=== PATIENT | female | born 1975 | race Caucasian/White ===

== ENCOUNTER 2016-12-06 15:18 | Emergency (ER) | payer MEDICAID ==
[2016-12-06] MEDS ORDERED: LIDOCAINE-EPINEPH-TETRACAINE 3 ML SYRINGE TOP STA (17:44)
[2016-12-06] MEDS ORDERED: LIDOCAINE-EPINEPH-TETRACAINE 3 ML SYRINGE TOP ONE (17:46)
== END 2016-12-06 18:25 | disposition home or self-care (01) ==
DX: L02.416 Cutaneous abscess of left lower limb (principal); F17.200 Nicotine dependence, unspecified, uncomplicated

== ENCOUNTER 2017-11-22 15:27 | Outpatient (CLI) | payer MEDICAID ==
[2017-11-22 16:04] LABS: ALBUMIN/GLOBULIN RATIO 0.9 (1.0-2.2); ALKALINE PHOSPHATASE 64 IU/L (42-121); ALT ALANINE AMINOTRANSFERASE 12 IU/L (10-60); AST ASPARTATE AMINOTRANSFERASE 24 IU/L (10-42); BILIRUBIN,TOTAL 0.2 mg/dL (0.2-1.0); BUN - BLOOD UREA NITROGEN 15 mg/dL (6-20); CALCIUM 8.9 mg/dL (8.5-10.3); CARBON DIOXIDE - CO2 27 mmol/L (21-32); CHLORIDE 100 mmol/L (101-111); CREATININE 0.9 mg/dL (0.4-1.0); GFR - MDRD 68 (>89); GLUCOSE 92 mg/dL (70-100); SODIUM 134 mmol/L (135-145); TOTAL PROTEIN 8.7 g/dL (6.7-8.2)
[2017-11-22 17:50] LABS: THYROID STIMULATING HORMONE 48.31 uIU/mL (0.34-5.60)
[2017-11-22 18:31] LABS: FREE T4 (FREE THYROXINE) 0.51 ng/dL (0.58-1.64)
== END 2017-11-22 15:28 | disposition home or self-care (01) ==
LOC: LAB 15:27
PROVIDERS: ATTEND Family Medicine
DX: B35.1 Tinea unguium (principal); E03.9 Hypothyroidism, unspecified
CPT/HCPCS: 36415; 80053; 84439; 84443

== ENCOUNTER 2019-01-25 08:16 | Outpatient (CLI) | payer MEDICAID ==
[2019-01-25 13:00] LABS: BASOPHILS % (AUTO) 0.5 %; EOSINOPHILS # (AUTO) 0.1 10^3/uL (0.0-0.7); EOSINOPHILS % (AUTO) 4.2 %; HGB - HEMOGLOBIN 12.3 g/dL (12.0-16.0); LYMPHOCYTES # (AUTO) 1.2 10^3/uL (1.5-3.5); LYMPHOCYTES % (AUTO) 46.8 %; MEAN CORPUSCULAR VOLUME 81.7 fL (81.0-99.0); MEAN PLATELET VOLUME 8.8 fL (7.9-10.8); MONOCYTES # (AUTO) 0.2 10^3/uL (0.0-1.0); NEUTROPHILS % (AUTO) 39.5 %; PLT - PLATELET COUNT 220 10^3/uL (130-450); RED BLOOD COUNT 4.57 10^6/uL (4.20-5.40); RED CELL DISTRIBUTION WIDTH 13.6 % (12.0-15.0); WHITE BLOOD COUNT 2.5 x10^3/uL (4.8-10.8)
[2019-01-25 13:17] LABS: CHOL/HDL RATIO 4.5 (<4.4); CHOLESTEROL 168 mg/dL; HB2 TOTAL 13.4 g/dL; HDL CHOLESTEROL 37 mg/dL; HEMOGLOBIN A1C 0.53 g/dL; HEMOGLOBIN A1C % 5.8 % (4.6-6.2); LDL CHOLESTEROL,CALCULATED 100 mg/dL; LDL/HDL RATIO 2.7 (<4.4); VLDL CHOLESTEROL 31 mg/dL
[2019-01-25 13:25] LABS: RBC MORPHOLOGY (MULTIPLE) 1+ ANISOCYTOSIS (NORMAL)
[2019-01-25 13:45] LABS: THYROID STIMULATING HORMONE 0.17 uIU/mL (0.34-5.60)
[2019-01-25 13:48] LABS: FREE T4 (FREE THYROXINE) 1.26 ng/dL (0.58-1.64)
[2019-01-26 11:26] LABS: HEPATITIS B SURFACE ANTIGEN NON-REACTIVE (NON-REACTIVE); HEPATITIS C ANTIBODY NON-REACTIVE (NON-REACTIVE)
== END 2019-01-25 23:59 | disposition home or self-care (01) ==
LOC: LAB.N 08:16
PROVIDERS: ATTEND Physician Assistant Medical
DX: Z00.00 Encounter for general adult medical examination without abnormal findings (principal); F19.11 Other psychoactive substance abuse, in remission
CPT/HCPCS: 36415; 80061; 83036; 83721; 84439; 84443; 85025; 86317; 86704; 86803; 87340

== ENCOUNTER 2019-01-26 13:20 | Outpatient (CLI) | payer MEDICAID ==
--- NOTE | 2019-01-26 14:18 | Mammography Report ---
Reason: SCREENING MAMMOGRAM FOR BREAST CANCER Procedure Date: 01/26/2019 Accession Number: [id number] / [id number] Procedure: MGN - Screening Mammo Dig Bilat CPT Code: FULL RESULT: EXAM: Screening Mammo Dig Bilat DATE: 01/26/2019 1:41 PM CLINICAL HISTORY: Routine screening. No reported personal or family history of breast cancer. TECHNIQUE: (B) - Bilateral CC and MLO views were obtained. COMPARISON: None. Baseline exam. PARENCHYMAL PATTERN: (A) - The breasts demonstrate scattered fibroglandular densities bilaterally. FINDINGS: Bilateral breasts: There are no suspicious masses, calcifications, or areas of distortion. There is coarse calcification or radiodense material associated with 2 lymph nodes included in the right axilla; if patient has right-sided tattoos this could be a tattoo ink. Otherwise, finding could be indicative of a prior granulomatous infection. IMPRESSION: Benign findings. BI-RADS category 2 RECOMMENDATION: (ANNUAL) - Recommend routine annual screening mammography. BI-RADS CATEGORY: (2) - Benign Findings STANDARD QUALIFYING STATEMENTS: 1. This examination was reviewed with the aid of Computer-Aided Detection (CAD). 2. A negative or benign imaging report should not preclude biopsy if clinically suspicious findings are present. 3. Dense breasts may obscure an underlying neoplasm. 4. This examination was reviewed without the aid of 3D breast imaging (tomosynthesis).
== END 2019-01-26 13:21 | disposition home or self-care (01) ==
LOC: DI.N 13:20
PROVIDERS: ATTEND Physician Assistant Medical
DX: Z12.31 Encounter for screening mammogram for malignant neoplasm of breast (principal)
CPT/HCPCS: 77067

== ENCOUNTER 2019-02-02 10:43 | Outpatient (CLI) | payer MEDICAID ==
--- NOTE | 2019-02-02 12:29 | XRAY Report ---
Reason: HIP PAIN Procedure Date: 02/02/2019 Accession Number: [id number] / [id number] Procedure: XR - Hips 2V BILAT CPT Code: FULL RESULT: EXAM: BILATERAL HIP RADIOGRAPHY EXAM DATE: 02/02/2019 11:33 AM. CLINICAL HISTORY: Hip pain. COMPARISON: None. TECHNIQUE: 2 views each. FINDINGS: Bones: Normal. No fractures or bone lesion. Right Hip: Normal. No dislocation. The hip joint space is preserved. Left Hip: Normal. No dislocation. The hip joint space is preserved. Soft Tissues: Normal. No soft tissue swelling. IMPRESSION: No fracture or dislocation. RADIA
--- NOTE | 2019-02-02 12:32 | XRAY Report ---
Reason: LOW BACK PAIN Procedure Date: 02/02/2019 Accession Number: [id number] / [id number] Procedure: XR - Lumbar Spine 2 View CPT Code: FULL RESULT: EXAM: LUMBOSACRAL SPINE RADIOGRAPHY EXAM DATE: 02/02/2019 11:33 AM. CLINICAL HISTORY: Low back pain. COMPARISONS: XR LUMBAR SPINE 2 OR 3 VIEWS 10/21/2008 4:23 PM. TECHNIQUE: 3 views. FINDINGS: Alignment: Interval development of mild levoconvex lumbar scoliosis centered about L3 as well as mild approximately 5 mm retrolisthesis of L2 on L3. Similarly, there is minimal, 3 mm retrolisthesis of L3 on L4 and L1 on L2. Bones: Five kvr-hwc-hixbmkm lumbar vertebral bodies are present. No fractures or bone lesions. Disks: Normal. Disk heights are maintained. Facets: Progression of facet arthropathy, now moderate at L5 and mild at L4. Sacroiliac Joints: Unremarkable. Soft Tissues: Normal. The visualized bowel gas pattern is normal. IMPRESSION: Interval development of retrolisthesis, scoliosis and mild progression of degenerative changes. RADIA
== END 2019-02-02 10:44 | disposition home or self-care (01) ==
LOC: DI 10:43
PROVIDERS: ATTEND Physician Assistant Medical
DX: M47.9 Spondylosis, unspecified (principal); M43.16 Spondylolisthesis, lumbar region; M41.9 Scoliosis, unspecified; M25.559 Pain in unspecified hip
CPT/HCPCS: 72100; 73521

== ENCOUNTER 2019-03-28 09:16 | Outpatient (CLI) | payer MEDICAID ==
[2019-03-28 13:08] LABS: RHEUMATOID FACTOR NEGATIVE (Negative)
[2019-04-02 14:16] LABS: ANA SCREEN POSITIVE (NEGATIVE)
== END 2019-03-28 23:59 | disposition home or self-care (01) ==
LOC: LAB.N 09:16
PROVIDERS: ATTEND Physician Assistant Medical
DX: M35.01 Sjogren syndrome with keratoconjunctivitis (principal)
CPT/HCPCS: 36415; 81599; 86038; 86235; 86430

== ENCOUNTER 2019-05-07 14:33 | Outpatient (CLI) | payer MEDICAID ==
[2019-05-07 16:27] LABS: FOLLICLE STIMULATING HORMONE 60.87 mIU/mL
[2019-05-07 16:28] LABS: LUTEINIZING HORMONE 43.89 mIU/mL
== END 2019-05-07 14:34 | disposition home or self-care (01) ==
LOC: LAB 14:33
PROVIDERS: ATTEND Obstetrics & Gynecology
DX: N95.1 Menopausal and female climacteric states (principal)
CPT/HCPCS: 36415; 82670; 83001; 83002

== ENCOUNTER 2019-08-18 14:38 | Emergency (ER) | payer MEDICAID ==
[2019-08-18 14:50] VITALS: BP 115/76
--- NOTE | 2019-08-18 15:03 | ED Physician Documentation ---
History of Present Illness - Stated complaint Stated Complaint: SORE THROAT - Chief complaint Chief Complaint: Heent - Additonal information Additional information: This is a 44-year-old female who has a history of past strep infections who presents with sore throat, fever, and lymph node swelling in her neck. Symptoms have been ongoing for 3 to 4 days, she states that she has had some increasing pain with swallowing, and she has had a fever at home for several days. No cough. She has some mild nasal congestion. No vomiting or abdominal pain. No shortness of breath. Review of Systems Throat: reports: Sore throat Cardiac: denies: Chest pain / pressure Respiratory: denies: Dyspnea PD PAST MEDICAL HISTORY - Past Medical History Respiratory: Pneumonia Endocrine/Autoimmune: HyPERthyroidism - Past Surgical History Past Surgical History: Yes General: Cholecystectomy - Present Medications Home Medications: Ambulatory Orders Medication Instructions Recorded Confirmed Oxycodone HCl/Acetaminophen 1 each PO Q6HR PRN #10 tablet 08/09/14 [Percocet 5-325 mg Tablet] Penicillin Vk 500 mg PO Q6H 10 Days tablet 08/09/14 - Allergies Allergies/Adverse Reactions: Allergies Allergy/AdvReac Type Severity Reaction Status Date / Time oxymetazoline HCl * Allergy Unknown Verified 08/18/19 14:50 [From Herbert-Synephrine (phenylephrine)] phenylephrine HCl * Allergy Unknown Verified 08/18/19 14:50 [From Herbert-Synephrine (phenylephrine)] sumatriptan [From Imitrex] Allergy Unknown Verified 08/18/19 14:50 sumatriptan succinate * Allergy Unknown Verified 08/18/19 14:50 [From Imitrex] xylometazoline HCl * Allergy Unknown Verified 08/18/19 14:50 [From Herbert-Synephrine (phenylephrine)] - Social History Does the pt smoke?: Yes Smoking Status: Current every day smoker Does the pt drink ETOH?: No Does the pt have substance abuse?: Yes - POLST Patient has POLST: No PD ED PE NORMAL - Vitals Vital signs reviewed: Yes - General General: Alert and oriented X 3, No acute distress - HEENT HEENT: Other (Pharynx is erythematous, tonsils are edematous, there is aAnterior lymphadenopathy. exudate on them bilaterally. There is cervical uvula is midli ne.) - Neck Neck: Supple, no meningeal sign - Cardiac Cardiac: RRR - Respiratory Respiratory: No respiratory distress - Derm Derm: Warm and dry - Extremities Extremities: No deformity - Neuro Neuro: Alert and oriented X 3 - Psych Psych: Normal mood, Normal affect Results - Vitals Vitals: Oxygen O2 Source Room air - Labs Labs: Microbiology 08/18/19 12:25 Group A Strep Throat Culture - Final Throat Beta Hemolytic Strep Group C Laboratory Tests 08/18/19 12:25 Group A Strep Rapid Negative PD MEDICAL DECISION MAKING - ED course Complexity details: considered differential (Strep throat, viral pharyngitis) ED course: Patient presents with sore throat, she has exudate, lymphadenopathy, and has not had significant cough or rhinorrhea, clinically she is high likelihood for strep throat. Rapid strep is negative but I think she warrants treatment. I discussed options with her and she elected for an IM shot of penicillin, which was given. 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 Return precautions discussed and patient was discharged home. Departure - Departure Disposition: 01 Home, Self Care Clinical Impression: Strep pharyngitis Condition: Good Instructions: ED Strep Pharyngitis Poss Follow-Up: Vitaly Morel PA-C [Primary Care Provider] - As Needed Comments: You were seen today for sore throat and fever. Rapid strep test was negative, but given your constellation of symptoms and your high risk for strep throat and we have treated with an injection of penicillin. Please return to the emergency department if you are having worsening symptoms. Continue to hydrate well, you may take Tylenol and ibuprofen for pain and fever. Forms: Activity restrictions Discharge Date/Time: 08/18/19 15:48
[2019-08-18] MEDS ORDERED: PENICILLIN G BENZATHINE 600,000 UNIT/ML SYRINGE IM STA (15:19)
== END 2019-08-18 15:48 | disposition home or self-care (01) ==
LOC: ED 14:38
DX: J02.0 Streptococcal pharyngitis (principal); F17.200 Nicotine dependence, unspecified, uncomplicated
CPT/HCPCS: 87070; 87430; 96372; 99283; 99284

== ENCOUNTER 2019-09-04 14:33 | Outpatient (CLI) | payer MEDICAID ==
--- NOTE | 2019-09-04 16:00 | MRI Report ---
Reason: RETROLISTHESIS OF VERTEBRA, HIP AND LOW BACK PAIN Procedure Date: 09/04/2019 Accession Number: [id number] / [id number] Procedure: MRI - Lumbar Spine W/O CPT Code: Final Report FULL RESULT: MRI LUMBAR SPINE WITHOUT CONTRAST INDICATION: 44-year-old female. Lower back pain and bilateral hip pain. Concern for lumbar radiculopathy. TECHNIQUE: 1. Sagittal STIR, T1 and T2. 2. Axial T1 and T2. COMPARISON: None. FINDINGS: Radiographs (02/02/2019) have been reviewed, confirming the presence of 5 xrg-yia-paxapmq, lumbar type vertebrae. The coronal localizer demonstrates a mild, levoconvex lumbar curvature with apex at about L3. In the sagittal plane there is mild, stepwise retrolisthesis of L1 on L2, L2 on L3 and L3 on L4 measuring roughly 3-4 mm in all 3 levels. The alignment is otherwise unremarkable. There is minimal anterior wedging of the T11 and T12 vertebral bodies with mild anterior wedging of L1. The vertebral body heights are otherwise preserved. No evidence of recent compression fracture. There is absence of normal T2 signal from the disks at T11-T12 and from L1-L2 to L5-S1, confirming disk degeneration. There is at least moderate disk space narrowing at T11-T12. Mild disk space narrowing is seen at L1-L2, L2-L3 and L3-L4. There is at least moderate disk space narrowing at L5-S1. The T12-L1 and L4-L5 disk space heights are relatively preserved. Type I reactive marrow changes are identified in the vertebral endplates at L5-S1 on the left. There is minor, type I reactive marrow change at L1-L2 anteriorly. A few small intraosseous hemangiomata are demonstrated. There is STIR hyperintense marrow signal in the left and right pedicles of L4 and L5, probably reactive and secondary to bilateral L4-L5 degenerative facet arthrosis. The possibility of stress reaction or other pathology is considered less likely. These changes are superimposed on a background of diffusely low T1 marrow signal, likely representing normal hematopoietic marrow in a patient this age. The conus terminates in an appropriate fashion above the L1-L2 disk level. Axial images: T12-L1: No disk herniation or spinal stenosis. The neural foramina are widely patent. L1-L2: Retrolisthesis. Shallow posterior protrusion. Mild mass effect on the ventral aspect of the thecal sac without spinal stenosis. Small right intraforaminal/extraforaminal protrusion. Mild foraminal narrowing. L2-L3: Retrolisthesis. Small intraforaminal/extraforaminal extrusions bilaterally. No significant spinal stenosis. Mild foraminal stenoses. L3-L4: Retrolisthesis. Broad-based intraforaminal/extraforaminal extrusions bilaterally, slightly larger on the right than the left. Mild degenerative facet arthrosis. No bony hypertrophy. Mild redundancy of the ligamenta flava. No central zone spinal stenosis or significant appearing subarticular zone narrowing. Mild left and mild to moderate right foraminal stenoses. L4-L5: Circumferential disk bulge. Small left intraforaminal/extraforaminal extrusion. Degenerative facet arthrosis with mild bony hypertrophy. Mild redundancy of the ligamenta flava. Circumferential mass effect on the thecal sac with mild generalized (central and subarticular zone) spinal stenosis. Mild bilateral foraminal stenoses. L5-S1: Small, broad-based, posterior extrusion largest paracentrally to the left where it projects into the spinal canal for up to about 5 mm. Degenerative facet arthrosis with mild bony hypertrophy. Small intraforaminal/extraforaminal extrusions bilaterally. No spinal stenosis. Mild foraminal narrowing. IMPRESSION: 1. Degenerative disk and facet changes are seen at multiple levels in the lumbar spine as documented in detail above. 2. No significant appearing spinal canal or foraminal stenosis is demonstrated. There is no evidence of neural impingement.
== END 2019-09-04 14:34 | disposition home or self-care (01) ==
LOC: DI 14:33
PROVIDERS: ATTEND Physician Assistant Medical
DX: M47.816 Spondylosis without myelopathy or radiculopathy, lumbar region (principal); M51.36 Other intervertebral disc degeneration, lumbar region; M51.34 Other intervertebral disc degeneration, thoracic region; M43.16 Spondylolisthesis, lumbar region
CPT/HCPCS: 72148

== ENCOUNTER 2020-03-04 12:33 | Outpatient (CLI) | payer MEDICAID ==
[2020-03-04 17:40] LABS: BASOPHILS % (AUTO) 0.6 %; EOSINOPHILS # (AUTO) 0.1 10^3/uL (0.0-0.7); EOSINOPHILS % (AUTO) 2.2 %; HGB - HEMOGLOBIN 12.9 g/dL (12.0-16.0); LYMPHOCYTES # (AUTO) 1.7 10^3/uL (1.5-3.5); LYMPHOCYTES % (AUTO) 51.7 %; MEAN CORPUSCULAR HEMOGLOBIN 25.7 pg (27.0-31.0); MEAN CORPUSCULAR HGB CONC 30.9 g/dL (32.0-36.0); MEAN CORPUSCULAR VOLUME 83.2 fL (81.0-99.0); MEAN PLATELET VOLUME 10.6 fL (7.9-10.8); MONOCYTES # (AUTO) 0.2 10^3/uL (0.0-1.0); MONOCYTES % (AUTO) 6.9 %; NEUTROPHILS # (AUTO) 1.2 10^3/uL (1.5-6.6); NEUTROPHILS % (AUTO) 38.3 %; PLT - PLATELET COUNT 211 10^3/uL (130-450); RED BLOOD COUNT 5.01 10^6/uL (4.20-5.40); RED CELL DISTRIBUTION WIDTH 12.5 % (12.0-15.0); WHITE BLOOD COUNT 3.2 x10^3/uL (4.8-10.8)
[2020-03-04 17:53] LABS: CALCIUM 8.9 mg/dL (8.5-10.3); CREATININE 0.8 mg/dL (0.4-1.0)
[2020-03-04 18:11] LABS: THYROID STIMULATING HORMONE < 0.08 uIU/mL (0.34-5.60)
== END 2020-03-04 23:59 | disposition home or self-care (01) ==
LOC: LAB.WCP 12:33
PROVIDERS: ATTEND Physician Assistant Medical
DX: E06.3 Autoimmune thyroiditis (principal)
CPT/HCPCS: 36415; 80048; 84439; 84443; 85025

== ENCOUNTER 2020-04-07 08:00 | Outpatient (CLI) | payer MEDICAID ==
[2020-04-07 13:19] LABS: THYROID STIMULATING HORMONE < 0.08 uIU/mL (0.34-5.60)
[2020-04-07 13:20] LABS: FREE T3 3.34 pg/mL (2.5-3.9)
[2020-04-07 13:21] LABS: FREE T4 (FREE THYROXINE) 1.54 ng/dL (0.58-1.64)
== END 2020-04-07 23:59 | disposition home or self-care (01) ==
LOC: LAB.WCP 08:00
PROVIDERS: ATTEND Nurse Practitioner Family
DX: E06.3 Autoimmune thyroiditis (principal)
CPT/HCPCS: 36415; 84439; 84443; 84481

== ENCOUNTER 2020-07-08 12:30 | Outpatient (CLI) | payer MEDICAID ==
--- NOTE | 2020-07-09 10:20 | Mammography Report ---
BILATERAL DIGITAL SCREENING MAMMOGRAM 3D/2D: 07/08/2020 CLINICAL: Routine screening. Comparison is made to exam dated: 01/26/2019 mammogram - [facility]. The tissue of both breasts is heterogeneously dense. This may lower the sensitivity of mammography. There is a lymph node in the right axilla with calcification which is unchanged. No significant masses, calcifications, or other findings are seen in either breast. There has been no significant interval change. IMPRESSION: BENIGN There is no mammographic evidence of malignancy. A 1 year screening mammogram is recommended. This exam was interpreted at Station ID: [id number]. NOTE: For mammograms, a report in lay terms will be sent to the patient. Approximately 15% of breast malignancies will not be visualized mammographically. In the management of a palpable breast mass, a negative mammogram must not discourage biopsy of a clinically suspicious lesion. Electronically Signed By: Norm Apple M.D. slc/:07/08/2020 18:08:32 ACR BI-RADS Category 2: Benign Finding(s) 3342F PARENCHYMAL PATTERN: (D) - The breast(s) demonstrate(s) heterogeneously dense fibroglandular shaq wheatley. BI-RADS CATEGORY: (2) - 2 RECOMMENDATION: (ANNUAL) - Recommend routine annual screening mammography. [id number] 1 year screening LATERALITY: (B)
== END 2020-07-08 12:31 | disposition home or self-care (01) ==
LOC: DI.N 12:30
DX: Z12.31 Encounter for screening mammogram for malignant neoplasm of breast (principal)
CPT/HCPCS: 77063; 77067

== ENCOUNTER 2021-04-10 08:00 | Outpatient (CLI) | payer MEDICAID ==
[2021-04-10 11:34] LABS: BASOPHILS % (AUTO) 0.4 %; EOSINOPHILS # (AUTO) 0.1 10^3/uL (0.0-0.7); EOSINOPHILS % (AUTO) 2.5 %; HGB - HEMOGLOBIN 12.3 g/dL (12.0-16.0); LYMPHOCYTES # (AUTO) 1.2 10^3/uL (1.5-3.5); LYMPHOCYTES % (AUTO) 51.7 %; MEAN CORPUSCULAR HGB CONC 31.5 g/dL (32.0-36.0); MEAN CORPUSCULAR VOLUME 85.5 fL (81.0-99.0); MEAN PLATELET VOLUME 10.7 fL (7.9-10.8); MONOCYTES # (AUTO) 0.3 10^3/uL (0.0-1.0); MONOCYTES % (AUTO) 10.5 %; NEUTROPHILS # (AUTO) 0.8 10^3/uL (1.5-6.6); NEUTROPHILS % (AUTO) 34.9 %; PLT - PLATELET COUNT 173 10^3/uL (130-450); RED BLOOD COUNT 4.56 10^6/uL (4.20-5.40); RED CELL DISTRIBUTION WIDTH 12.8 % (12.0-15.0); WHITE BLOOD COUNT 2.4 x10^3/uL (4.8-10.8)
[2021-04-10 11:43] LABS: SLIDE REVIEW? Indicated
[2021-04-10 12:24] LABS: PLATELET ESTIMATE, MANUAL NORMAL (130-450,000) (NORMAL); PLATELET MORPHOLOGY NORMAL APPEARANCE (NORMAL); RBC MORPHOLOGY (MULTIPLE) 1+ OVALOCYTES (NORMAL)
[2021-04-10 12:32] LABS: ALBUMIN 4.2 g/dL (3.2-5.5); ALKALINE PHOSPHATASE 56 IU/L (42-121); ALT ALANINE AMINOTRANSFERASE 20 IU/L (10-60); AST ASPARTATE AMINOTRANSFERASE 21 IU/L (10-42); BILIRUBIN,TOTAL 0.5 mg/dL (0.2-1.0); BUN - BLOOD UREA NITROGEN 18 mg/dL (6-20); CALCIUM 9.3 mg/dL (8.5-10.3); CARBON DIOXIDE - CO2 26 mmol/L (21-32); CHLORIDE 105 mmol/L (101-111); CHOL/HDL RATIO 3.5 (<4.4); CHOLESTEROL 180 mg/dL; CREATININE 0.8 mg/dL (0.4-1.0); GFR - MDRD 77 (>89); GLUCOSE 105 mg/dL (70-100); HDL CHOLESTEROL 51 mg/dL; LDL CHOLESTEROL,CALCULATED 113 mg/dL; LDL/HDL RATIO 2.2 (<4.4); POTASSIUM 4.2 mmol/L (3.5-5.0); SODIUM 138 mmol/L (135-145); TOTAL PROTEIN 8.5 g/dL (6.7-8.2); TRIGLYCERIDES 78 mg/dL; VLDL CHOLESTEROL 16 mg/dL
[2021-04-10 13:08] LABS: THYROID STIMULATING HORMONE 0.01 uIU/mL (0.34-5.60)
[2021-04-10 13:53] LABS: FREE T4 (FREE THYROXINE) 1.52 ng/dL (0.58-1.64)
== END 2021-04-10 23:59 | disposition home or self-care (01) ==
LOC: LAB.WCP 08:00
PROVIDERS: ATTEND Nurse Practitioner Family
DX: Z00.00 Encounter for general adult medical examination without abnormal findings (principal); E06.3 Autoimmune thyroiditis
CPT/HCPCS: 36415; 80053; 80061; 83721; 84439; 84443; 85025

== ENCOUNTER 2021-05-09 08:00 | Outpatient (CLI) | payer MEDICAID | END 2021-05-09 23:59 | disposition home or self-care (01) | LOC: LAB.N 08:00 | PROVIDERS: ATTEND Family Medicine | DX: R07.0 Pain in throat (principal); Z20.822 Contact with and (suspected) exposure to COVID-19 | CPT/HCPCS: 87070 ==

== ENCOUNTER 2021-07-07 16:03 | Outpatient (CLI) | payer MEDICAID ==
--- NOTE | 2021-07-07 19:02 | XRAY Report ---
PROCEDURE: Cervical Spine w/Flex/Ext INDICATIONS: CHRONIC NECK PAIN TECHNIQUE: 7 views of the cervical spine were acquired. COMPARISON: None. FINDINGS: Bones: No fractures or dislocations to the C7 level. There is moderate degenerative change in the ce rvical spine most pronounced at C5-C6 and C6-C7 where there is prominent osteophytes, intervertebral disc space height loss, and endplate sclerosis. There is uncovertebral joint hypertrophy. There is a mild left neural foraminal narrowing at C5-C6 and C6-C7. No suspicious bony lesions. There is preser gomez normal bony alignment with flexion and extension. There is less than expected range of motion. Soft tissues: Prevertebral soft tissues are normal in thickness. IMPRESSION: Moderate early onset degenerative change in the cervical spine. This is most pronounced at C5-C6 and C6-C7. Decreased range of motion with flexion and extension. Reviewed by: Norm Apple MD on 07/07/2021 6:01 PM [facility] Approved by: Norm Apple MD on 07/07/2021 6:01 PM [facility] Station ID: [id number]
== END 2021-07-07 16:04 | disposition home or self-care (01) ==
LOC: DI.N 16:03
PROVIDERS: ATTEND Family Medicine
DX: M47.812 Spondylosis without myelopathy or radiculopathy, cervical region (principal)

== ENCOUNTER 2021-08-14 08:00 | Outpatient (CLI) | payer MEDICAID | END 2021-08-14 08:01 | disposition home or self-care (01) | LOC: LAB 08:00 | PROVIDERS: ATTEND Family Medicine | DX: R07.0 Pain in throat (principal) | CPT/HCPCS: 87070 ==

== ENCOUNTER 2021-08-14 08:00 | Outpatient (CLI) | payer MEDICAID | END 2021-08-14 08:01 | disposition home or self-care (01) | LOC: LAB 08:00 | PROVIDERS: ATTEND Family Medicine | DX: R07.0 Pain in throat (principal); Z20.822 Contact with and (suspected) exposure to COVID-19 ==

== ENCOUNTER 2021-10-09 12:47 | Outpatient (CLI) | payer MEDICAID | END 2021-10-09 23:59 | disposition home or self-care (01) | LOC: LAB.N 12:47 | PROVIDERS: ATTEND Physician Assistant | DX: R07.0 Pain in throat (principal) | CPT/HCPCS: 87070 ==

== ENCOUNTER 2022-03-09 14:32 | Outpatient (CLI) | payer MEDICAID ==
--- NOTE | 2022-03-10 13:41 | Mammography Report ---
BILATERAL DIGITAL SCREENING MAMMOGRAM 3D/2D: 03/09/2022 CLINICAL: Routine screening. Comparison is made to exams dated: 07/08/2020 mammogram and 01/26/2019 mammogram - [facility]. There are scattered fibroglandular elements in both breasts. No significant masses, calcifications, or other findings are seen in either breast. There has been no significant interval change. IMPRESSION: NEGATIVE There is no mammographic evidence of malignancy. A 1 year screening mammogram is recommended. This exam was interpreted at Station ID: [id number]. NOTE: For mammograms, a report in lay terms will be sent to the patient. Approximately 15% of breast malignancies will not be visualized mammographically. In the management of a palpable breast mass, a negative mammogram must not discourage biopsy of a clinically suspicious lesion. Electronically Signed By: Tamela buchanan/penrad:03/09/2022 16:59:30 ACR BI-RADS Category 1: Negative 3341F PARENCHYMAL PATTERN: (A) - The breast(s) demonstrate(s) scattered fibroglandular densities. BI-RADS CATEGORY: (1) - 1 RECOMMENDATION: (ANNUAL) - Recommend routine annual screening mammography. [id number] 1 year screening LATERALITY: (B)
== END 2022-03-09 14:33 | disposition home or self-care (01) ==
LOC: DI.N 14:32
PROVIDERS: ATTEND Obstetrics & Gynecology
DX: Z12.31 Encounter for screening mammogram for malignant neoplasm of breast (principal)

== ENCOUNTER 2022-07-20 10:27 | Outpatient (CLI) | payer MEDICAID ==
[2022-07-20 12:26] LABS: BASOPHILS % (AUTO) 0.4 %; EOSINOPHILS # (AUTO) 0.1 10^3/uL (0.0-0.7); HCT - HEMATOCRIT 38.1 % (37.0-47.0); HGB - HEMOGLOBIN 12.4 g/dL (12.0-16.0); LYMPHOCYTES # (AUTO) 1.4 10^3/uL (1.5-3.5); LYMPHOCYTES % (AUTO) 51.5 %; MEAN CORPUSCULAR HEMOGLOBIN 26.9 pg (27.0-31.0); MEAN CORPUSCULAR HGB CONC 32.5 g/dL (32.0-36.0); MEAN CORPUSCULAR VOLUME 82.6 fL (81.0-99.0); MEAN PLATELET VOLUME 10.5 fL (7.9-10.8); MONOCYTES # (AUTO) 0.2 10^3/uL (0.0-1.0); NEUTROPHILS % (AUTO) 36.1 %; PLT - PLATELET COUNT 184 10^3/uL (130-450); RED BLOOD COUNT 4.61 10^6/uL (4.20-5.40); WHITE BLOOD COUNT 2.7 x10^3/uL (4.8-10.8)
[2022-07-20 12:59] LABS: ALBUMIN 4.2 g/dL (3.2-5.5); ALBUMIN/GLOBULIN RATIO 0.9 (1.0-2.2); ALKALINE PHOSPHATASE 60 IU/L (42-121); ALT ALANINE AMINOTRANSFERASE 27 IU/L (10-60); AST ASPARTATE AMINOTRANSFERASE 25 IU/L (10-42); BILIRUBIN,TOTAL 0.5 mg/dL (0.2-1.0); BUN - BLOOD UREA NITROGEN 14 mg/dL (6-20); CALCIUM 9.5 mg/dL (8.5-10.3); CARBON DIOXIDE - CO2 27 mmol/L (21-32); CHLORIDE 102 mmol/L (101-111); CHOL/HDL RATIO 3.6 (<4.4); CHOLESTEROL 192 mg/dL; CREATININE 0.7 mg/dL (0.4-1.0); GFR - MDRD 89 (>89); GLUCOSE 92 mg/dL (70-100); HDL CHOLESTEROL 54 mg/dL; LDL CHOLESTEROL,CALCULATED 126 mg/dL; LDL/HDL RATIO 2.3 (<4.4); POTASSIUM 4.2 mmol/L (3.5-5.0); SODIUM 135 mmol/L (135-145); TOTAL PROTEIN 9.1 g/dL (6.7-8.2); TRIGLYCERIDES 61 mg/dL; VLDL CHOLESTEROL 12 mg/dL
[2022-07-20 13:04] LABS: THYROID STIMULATING HORMONE < 0.08 uIU/mL (0.34-5.60)
[2022-07-20 13:06] LABS: FREE T4 (FREE THYROXINE) 1.69 ng/dL (0.58-1.64)
[2022-07-20 14:02] LABS: DIFFERENTIAL COMMENT MANUAL=AUTO DIFF
== END 2022-07-20 10:28 | disposition home or self-care (01) ==
LOC: LAB.N 10:27
PROVIDERS: ATTEND Nurse Practitioner
DX: N32.81 Overactive bladder (principal); M79.7 Fibromyalgia; R53.83 Other fatigue; Z13.220 Encounter for screening for lipoid disorders; E06.3 Autoimmune thyroiditis; D72.810 Lymphocytopenia; Z78.0 Asymptomatic menopausal state; Z79.890 Hormone replacement therapy
CPT/HCPCS: 36415; 80053; 80061; 83721; 84439; 84443; 85025

== ENCOUNTER 2023-02-28 13:43 | Outpatient (CLI) | payer MEDICAID ==
--- NOTE | 2023-03-01 09:18 | Mammography Report ---
BILATERAL DIGITAL SCREENING MAMMOGRAM 3D/2D: 02/28/2023 CLINICAL: Routine screening. Comparison is made to exams dated: 03/09/2022 mammogram, 07/08/2020 mammogram, and 01/26/2019 mammogram - [facility]. There are scattered areas of fibroglandular density in both breasts (category b / 25%-50% glandular t issue). No significant masses, calcifications, or other findings are seen in either breast. There has been no significant interval change. IMPRESSION: NEGATIVE There is no mammographic evidence of malignancy. A 1 year screening mammogram is recommended. Based on the Tyrer Cuzick model (a risk assessment model) the patients lifetime risk is 9.0% and her 10 year risk is 2.0%. According to the ACR, ACS, and NCCN guidelines, an annual breast MRI exam angie g with mammogram is recommended if the patients lifetime risk is 20% or greater. This exam was interpreted at Station ID: [id number]. NOTE: For mammograms, a report in lay terms will be sent to the patient. Approximately 15% of breast malignancies will not be visualized mammographically. In the management of a palpable breast mass, a negative mammogram must not discourage biopsy of a clinically suspicious lesion. Electronically Signed By: Calixto peralta/alexis:02/28/2023 17:28:29 letter sent: No_Letter ACR BI-RADS Category 1: Negative 3341F PARENCHYMAL PATTERN: (A) - The breast(s) demonstrate(s) scattered fibroglandular densities. BI-RADS CATEGORY: (1) - 1 Mammogram [id number] 1 year screening LATERALITY: (B)
== END 2023-02-28 13:44 | disposition home or self-care (01) ==
LOC: DI.N 13:43
PROVIDERS: ATTEND Obstetrics & Gynecology
DX: Z12.31 Encounter for screening mammogram for malignant neoplasm of breast (principal)

== ENCOUNTER 2023-03-08 14:15 | Outpatient (CLI) | payer MEDICAID ==
[2023-03-08 17:39] LABS: BASOPHILS % (AUTO) 0.8 %; EOSINOPHILS % (AUTO) 4.2 %; HCT - HEMATOCRIT 34.4 % (37.0-47.0); HGB - HEMOGLOBIN 11.3 g/dL (12.0-16.0); LYMPHOCYTES % (AUTO) 44.4 %; MEAN CORPUSCULAR HEMOGLOBIN 27.3 pg (27.0-31.0); MEAN CORPUSCULAR HGB CONC 32.8 g/dL (32.0-36.0); MEAN CORPUSCULAR VOLUME 83.1 fL (81.0-99.0); MEAN PLATELET VOLUME 10.9 fL (7.9-10.8); MONOCYTES % (AUTO) 7.3 %; NEUTROPHILS % (AUTO) 43.3 %; PLT - PLATELET COUNT 158 10^3/uL (130-450); RED BLOOD COUNT 4.14 10^6/uL (4.20-5.40); RED CELL DISTRIBUTION WIDTH 13.4 % (12.0-15.0); WHITE BLOOD COUNT 2.6 x10^3/uL (4.8-10.8)
[2023-03-08 17:46] LABS: ABNORMAL LYMPHS % (MANUAL) 0 %; BAND NEUTROPHILS % (MANUAL) 0 %
[2023-03-08 17:59] LABS: ALBUMIN 3.8 g/dL (3.2-5.5); ALBUMIN/GLOBULIN RATIO 0.9 (1.0-2.2); BILIRUBIN,TOTAL 0.5 mg/dL (0.2-1.0); CALCIUM 8.9 mg/dL (8.5-10.3); CREATININE 0.8 mg/dL (0.4-1.0); POTASSIUM 4.3 mmol/L (3.5-5.0)
[2023-03-08 18:18] LABS: FOLATE 12.73 ng/mL (5.90 - >24.8)
[2023-03-08 18:24] LABS: EOSINOPHILS # (MANUAL) 0.1 10^3/uL (0-0.7); LYMPHOCYTES # (MANUAL) 1.2 10^3/uL (1.5-3.5); LYMPHOCYTES % (MANUAL) 46 %; METAMYELOCYTES % (MANUAL) 1 %; MONOCYTES # (MANUAL) 0.2 10^3/uL (0.0-1.0); NEUTROPHILS # (MANUAL) 1.1 10^3/uL (1.5-6.6); PLATELET ESTIMATE, MANUAL NORMAL (130-450,000) (NORMAL); PLATELET MORPHOLOGY NORMAL APPEARANCE (NORMAL); RBC MORPHOLOGY (MULTIPLE) NORMAL APPEARANCE (NORMAL)
[2023-03-08 18:25] LABS: DIFFERENTIAL COMMENT MANUAL DIFFERENTIAL
[2023-03-09 20:07] LABS: KAPPA FREE LT CHAINS SERUM 82.5 mg/L (3.3-19.4); KAPPA/LAMBDA RATIO SERUM 2.17 (0.26-1.65)
[2023-03-10 14:09] LABS: A/G RATIO 0.9 (0.7-1.7); ALBUMIN 3.5 g/dL (2.9-4.4); ALPHA-1-GLOBULIN 0.2 g/dL (0.0-0.4); ALPHA-2-GLOBULIN 0.6 g/dL (0.4-1.0); BETA GLOBULIN 0.9 g/dL (0.7-1.3); GAMMA GLOBULIN 2.2 g/dL (0.4-1.8); GLOBULIN TOTAL 3.9 g/dL (2.2-3.9); IMMUNOGLOBULIN A (IGA) 230 mg/dL (87-352); IMMUNOGLOBULIN G (IGG) 2469 mg/dL (586-1602); IMMUNOGLOBULIN M (IGM) 69 mg/dL (26-217); M-SPIKE Not Observed g/dL (Not Observed); PROTEIN TOTAL 7.4 g/dL (6.0-8.5)
== END 2023-03-08 14:16 | disposition home or self-care (01) ==
LOC: LAB.N 14:15
PROVIDERS: ATTEND Internal Medicine Hematology & Oncology
DX: D70.9 Neutropenia, unspecified (principal)
CPT/HCPCS: 36415; 80053; 82607; 82746; 82784; 83521; 84155; 84165; 85025; 86334

== ENCOUNTER 2023-11-06 15:59 | Emergency (ER) | payer BC, MEDICAID ==
--- NOTE | 2023-11-06 17:45 | XRAY Report ---
PROCEDURE: Forearm LT INDICATIONS: Trauma TECHNIQUE: 2 views of the forearm were acquired. COMPARISON: None. FINDINGS: Bones: No fractures or dislocations. No suspicious bony lesions. Soft tissues: No suspicious soft tissue calcifications or masses. IMPRESSION: No acute bony abnormality. Reviewed by: Diaz Lai MD on 11/06/2023 4:44 PM [facility] Approved by: Diaz Lai MD on 11/06/2023 4:44 PM [facility] Station ID: [id number]
[2023-11-06 19:02] VITALS: BP 123/75; O2SAT 100
[2023-11-06] MEDS: ACETAMINOPHEN 325 MG TABLET PO STA (19:21)
--- NOTE | 2023-11-06 19:51 | XRAY Report ---
PROCEDURE: Wrist 3+V LT INDICATIONS: fall, wrist pain TECHNIQUE: 3 views of the wrist were acquired. COMPARISON: None. FINDINGS: Bones: No fractures or dislocations. No suspicious bony lesions. Soft tissues: No suspicious soft tissue calcifications or masses. IMPRESSION: No acute bony abnormality. If there is anatomic snuff box tenderness, consider wrist immobilization a nd repeat radiographs in 10-14 days or cross-sectional imaging now. If pain persists with conservativ e management, consider repeat radiographs in 10-14 days or cross-sectional imaging. Reviewed by: Leo Goss MD on 11/06/2023 7:50 PM PST Approved by: Leo Goss MD on 11/06/2023 7:50 PM PST Station ID: [id number]
--- NOTE | 2023-11-06 20:09 | ED Physician Documentation ---
PD HPI UPPER EXT INJURY - Stated complaint Stated Complaint: FALL,LT WRIST INJ - Chief complaint Chief Complaint: Trauma Ext - History obtained from History obtained from: Patient - History of Present Illness Location: Left, Wrist, Hand Type of injury: Fall Where injury occurred: Work Timing - onset: Today Pain level max: 5 Pain level now: 5 Improved by: Rest Worsened by: Moving, Palpating Associated symptoms: No: Weakness, Numbness, Tingling, Swelling, Discolored Recently seen: Not recently seen - Additonal information Additional information: Patient is a 48-year-old female who presents to the emergency department after a fall at work today, landed on the left wrist. Complains of left wrist pain, worse with movement, better with rest. No swelling, no deformity. No tingling. Review of Systems Constitutional: denies: Fever, Chills GI: denies: Vomiting, Diarrhea Skin: denies: Rash Musculoskeletal: denies: Neck pain, Back pain Neurologic: denies: Headache PD PAST MEDICAL HISTORY - Past Medical History Past Medical History: Yes Respiratory: Pneumonia Endocrine/Autoimmune: HyPERthyroidism - Past Surgical History Past Surgical History: Yes General: Cholecystectomy - Present Medications Home Medications: Ambulatory Orders Medication Instructions Recorded Confirmed Calcium Carb/Mag Ox/Zinc Sulf 1 each PO DAILY PM 11/22/22 11/06/23 [Brb-Iwl-Rryy 334-134-5 mg Tab] Cyclobenzaprine [Flexeril] 10 mg PO DAILY 11/22/22 11/06/23 Levothyroxine Sodium 175 mcg PO DAILY PM 11/22/22 11/06/23 [Levothyroxine] Amlodipine Besylate [Norvasc] 2.5 mg PO DAILY 11/06/23 11/06/23 estradioL vaginal [Estrace vaginal] 2 gm VG ONCE 11/06/23 11/06/23 - Allergies Allergies/Adverse Reactions: Allergies Allergy/AdvReac Type Severity Reaction Status Date / Time latex Allergy Rash Verified 11/06/23 16:02 oxymetazoline HCl * Allergy Unknown Verified 11/06/23 16:02 [From Herbert-Synephrine (phenylephrine)] phenylephrine HCl * Allergy Hives Verified 11/06/23 16:02 [From Herbert-Synephrine (phenylephrine)] sumatriptan [From Imitrex] Allergy Unknown Verified 11/06/23 16:02 sumatriptan succinate * Allergy Unknown Verified 11/06/23 16:02 [From Imitrex] xylometazoline HCl * Allergy Hives Verified 11/06/23 16:02 [From Herbert-Synephrine (phenylephrine)] - Social History Does the pt smoke?: Yes Smoking Status: Current every day smoker Does the pt drink ETOH?: No Does the pt have substance abuse?: Yes - Immunizations Immunizations are current?: Yes - POLST Patient has POLST: No PD ED PE NORMAL - Vitals Vital signs reviewed: Yes - General General: Alert and oriented X 3, No acute distress - HEENT HEENT: PERRL, Moist mucous membranes - Neck Neck: Supple, no meningeal sign - Derm Derm: Warm and dry - Extremities Extremities: Other (Mild tender to palpation diffusely about the left wrist. No swelling. No deformity. No snuffbox tenderness. Otherwise normal examination of the left hand, wrist and forearm. No elbow tenderness or pain. Neurovascular intact) - Neuro Neuro: Alert and oriented X 3 - Psych Psych: Normal mood, Normal affect Results - Vitals Vitals: Oxygen O2 Source Room air - Rads (name of study) Left wrist x-ray Relevant Findings:: Final report received, See rad report Left forearm x-ray Relevant Findings:: Final report received, See rad report PD Medical Decision Making - ED course Complexity details: reviewed results, considered differential, d/w patient ED course: 48-year-old female with a left wrist sprain. No acute findings on x-rays. Placed in a Velcro splint for comfort. Patient declines any pain medication for home. Took Tylenol here. Neurovascular intact. No snuffbox tenderness or evidence of scaphoid fracture. Patient counseled regarding signs and symptoms for which I believe and urgent re-evaluation would be necessary. Patient with good understanding of and agreement to plan and is comfortable going home at this time This document was made in part using voice recognition software. While efforts are made to proofread this document, sound alike and grammatical errors may occur. Departure - Departure Disposition: 01 Home, Self Care Clinical Impression: Sprain of wrist, left Qualifiers: Encounter type: initial encounter Qualified Code(s): S63.502A - Unspecified sprain of left wrist, initial encounter Condition: Good Instructions: ED Sprain Wrist Follow-Up: Apoorva Sotelo ARNP [Primary Care Provider] - Within 1 week Comments: You can use the Velcro splint as needed for comfort. Please follow-up with your doctor for further care. Your x-rays do not show any acute abnormalities today. Please return if you worsen. Forms: PCP List Discharge Date/Time: 11/06/23 20:30
== END 2023-11-06 20:30 | disposition home or self-care (01) ==
LOC: ED 15:59
DX: S63.502A Unspecified sprain of left wrist, initial encounter (principal); W19.XXXA Unspecified fall, initial encounter; Y99.0 Civilian activity done for income or pay; E05.90 Thyrotoxicosis, unspecified without thyrotoxic crisis or storm; F17.200 Nicotine dependence, unspecified, uncomplicated; Z79.899 Other long term (current) drug therapy
CPT/HCPCS: 73090; 73110; 99283; A9270

== ENCOUNTER 2024-01-11 15:27 | Outpatient (CLI) | payer BC ==
--- NOTE | 2024-01-11 16:50 | XRAY Report ---
PROCEDURE: Chest 2V INDICATIONS: PNEUMONIA TECHNIQUE: 2 views of the chest were acquired. COMPARISON: None. FINDINGS: Surgical changes and devices: None. Lungs and pleura: There is blunting of the costophrenic angles bilaterally. Mediastinum: Mediastinal contours appear normal. Heart size is normal. Bones and chest wall: No suspicious bony lesions. Overlying soft tissues appear unremarkable. IMPRESSION: Bilateral costophrenic angle blunting suggestive minimal effusions. Underlying areas of pneumonia/ate lectasis cannot be excluded. Reviewed by: Lubna Hartman MD on 01/11/2024 4:49 PM PDT Approved by: Lubna Hartman MD on 01/11/2024 4:49 PM PDT Station ID: [id number]
== END 2024-01-11 15:28 | disposition home or self-care (01) ==
LOC: DI.N 15:27
PROVIDERS: ATTEND Nurse Practitioner
DX: J18.9 Pneumonia, unspecified organism (principal)

== ENCOUNTER 2024-01-11 15:29 | Outpatient (CLI) | payer BC ==
[2024-01-11 17:52] LABS: ALBUMIN 4.2 g/dL (3.2-5.5); ALKALINE PHOSPHATASE 59 IU/L (42-121); ALT ALANINE AMINOTRANSFERASE 17 IU/L (10-60); AST ASPARTATE AMINOTRANSFERASE 23 IU/L (10-42); BILIRUBIN,TOTAL 0.4 mg/dL (0.2-1.0); BUN - BLOOD UREA NITROGEN 15 mg/dL (6-20); CALCIUM 9.9 mg/dL (8.5-10.3); CARBON DIOXIDE - CO2 25 mmol/L (21-32); CHLORIDE 104 mmol/L (101-111); CREATININE 0.7 mg/dL (0.6-1.3); GFR - MDRD 89 (>89); GLUCOSE 82 mg/dL (74-104); POTASSIUM 4.1 mmol/L (3.5-4.5); SODIUM 134 mmol/L (135-145); TOTAL PROTEIN 8.5 g/dL (6.4-8.9)
[2024-01-11 18:10] LABS: THYROID STIMULATING HORMONE < 0.01 uIU/mL (0.34-5.60)
== END 2024-01-11 15:30 | disposition home or self-care (01) ==
LOC: LAB.N 15:29
PROVIDERS: ATTEND Nurse Practitioner
DX: J18.9 Pneumonia, unspecified organism (principal); E06.3 Autoimmune thyroiditis
CPT/HCPCS: 36415; 80053; 84439; 84443; 85025

== ENCOUNTER 2024-01-13 12:21 | Outpatient (CLI) | payer BC ==
[2024-01-13 18:22] LABS: BASOPHILS % (AUTO) 0.4 %; EOSINOPHILS % (AUTO) 0.4 %; HCT - HEMATOCRIT 38.9 % (37.0-47.0); HGB - HEMOGLOBIN 12.4 g/dL (12.0-16.0); LYMPHOCYTES # (AUTO) 2.3 10^3/uL (1.5-3.5); LYMPHOCYTES % (AUTO) 48.1 %; MEAN CORPUSCULAR HEMOGLOBIN 26.3 pg (27.0-31.0); MEAN CORPUSCULAR HGB CONC 31.9 g/dL (32.0-36.0); MEAN CORPUSCULAR VOLUME 82.4 fL (81.0-99.0); MEAN PLATELET VOLUME 10.3 fL (7.9-10.8); MONOCYTES # (AUTO) 0.5 10^3/uL (0.0-1.0); MONOCYTES % (AUTO) 9.6 %; NEUTROPHILS % (AUTO) 41.3 %; PLT - PLATELET COUNT 234 10^3/uL (130-450); RED BLOOD COUNT 4.72 10^6/uL (4.20-5.40); RED CELL DISTRIBUTION WIDTH 13.6 % (12.0-15.0); WHITE BLOOD COUNT 4.8 x10^3/uL (4.8-10.8)
== END 2024-01-13 12:22 | disposition home or self-care (01) ==
LOC: LAB.N 12:21
PROVIDERS: ATTEND Nurse Practitioner
DX: J18.9 Pneumonia, unspecified organism (principal)
CPT/HCPCS: 36415; 85025